=== PATIENT | female | born 1995 | race Caucasian/White ===

== ENCOUNTER 2021-01-28 13:29 | Outpatient (CLI) | payer BC, SELFPAY ==
--- NOTE | ~2021-01-28 | US_ITS ---
EXAMINATION: US thyroid EXAM DATE: 01/28/2021 14:14 INDICATION: hypothyroidism, unspec. TECHNIQUE: Multiple grayscale and Doppler images of the thyroid were obtained (by a technologist who performed the scan) and subsequently reviewed. Individual nodules and recommendations may be reporte d in accordance with TI-RADS system as designated by the 2017 ACR White Paper TI-RADS committee. Comp zelalemson is made to prior examination from 02/22/2014. FINDINGS: Right thyroid lobe measures 3.9 x 1.5 x 1.2 cm, the left measuring 4.1 x 1.4 x 1.5 cm. Relatively bibiana ogeneous thyroid echogenicity. These dimensions are within normal size limits. Anechoic nodule, cyst in the left thyroid lobe measuring 6 mm. IMPRESSION: 1. Unremarkable thyroid ultrasound exam. Reviewed, dictated and finalized at location B.
== END 2021-01-28 13:30 | disposition home or self-care (01) ==
LOC: ANHIMG 13:33
PROVIDERS: PCP Nurse Practitioner; Visit Provider Nurse Practitioner
DX: E03.9 Hypothyroidism, unspecified (principal)
CPT/HCPCS: 76536